=== PATIENT | male | born 1955 | race African-American/Black ===

== ENCOUNTER 2024-02-25 16:32 | Emergency (ER) | payer OTHER ==
[2024-02-25 16:58] LABS: Bilirubin Neg (Negative); Blood, Urine Negative (Negative); Glucose, Urine (Dipstick) Normal (Negative); Ketone, Urine Negative (Negative); Leukocyte Negative (Negative); Nitrite Negative (Negative); Protein, Urine (Dipstick) 500 mg/dl (Neg-Trace); Specific Gravity, Urine 1.025 (1.005-1.030); Urobilinogen Normal mg/dL (Less than 2)
[2024-02-25 17:12] LABS: Clarity Hazy (Clear)
[2024-02-25 17:13] LABS: Bacteria/HPF 2+ HPF (None Seen); CAUTI Indications for Culture Pelvic or flank pain; Mucous/LPF 3+ LPF (<2+); RBC/HPF 0-3 HPF (0-3); Squamous Epithelial 0-3 HPF (0-3); WBC/HPF 0-3 HPF (0-3)
[2024-02-25 17:16] LABS: Urine Culture Reflex No No
[2024-02-25] MEDS ORDERED: Ondansetron PF 4 MG/2 ML Vial ONE (18:43)
[2024-02-25] MEDS ORDERED: Meclizine HCl 25 MG TAB ONE (18:44)
[2024-02-25 19:27] LABS: #Basophils 0.02 10x3/uL (0.0-0.2); #Monocytes 0.54 10x3/uL (0.0-1.1); #Neutrophils 5.34 10x3/uL (1.5-8.4); %Basophils 0.3 % (0.0-2.0); %Eosinophils 1.4 % (0.0-6.0); %Lymphocytes 15.4 % (18.0-47.0); %Monocytes 7.6 % (0.0-10.0); ALT (SGPT) 10 U/L (8-55); AST (SGOT) 12 U/L (5-34); Albumin 3.9 g/dL (3.4-4.8); Alkaline Phosphatase 95 U/L (40-110); Anion Gap 16 mmol/L (10-20); BUN (Urea Nitrogen) 44 mg/dL (8.4-25.7); Bilirubin, Total 0.3 mg/dL (0.2-1.2); Calc. Creatinine Clearance 0 mL/min (70-130); Calcium 9.9 mg/dL (7.8-10.44); Carbon Dioxide 22 mmol/L (23-31); Chloride 106 mmol/L (98-107); Estimated GFR 18; Glucose 98 mg/dL (80-115); Hemoglobin 11.6 g/dL (13.5-17.5); Lipase 94 U/L (8-78); Mean Corpuscular HGB CONC 32.2 g/dL (32.0-36.0); Mean Corpuscular Hemoglobin 29.9 pg (27.0-33.0); Mean Corpuscular Volume 92.8 fL (81.2-95.1); Mean Platelet Volume 9.8 fL (7.4-10.4); Platelet Count 181 10x3/uL (150-450); Potassium 4.1 mmol/L (3.5-5.1); Protein, Total 7.9 g/dL (5.8-8.1); RBC Distribution Width 14.7 % (11.5-14.5); Red Blood Cell (RBC) Count 3.88 10x6/uL (4.32-5.72); Sodium 140 mmol/L (136-145); White Blood Cell (WBC) Count 7.1 10x3/uL (3.5-10.5)
[2024-02-25 19:29] LABS: Troponin I 0.018 ng/mL (< 0.028)
== END 2024-02-25 20:55 | disposition home or self-care (01) ==
LOC: CSHERS 16:32
DX: R42 Dizziness and giddiness (principal); R29.700 NIHSS score 0; R11.0 Nausea; I10 Essential (primary) hypertension; Z79.899 Other long term (current) drug therapy
CPT/HCPCS: 70450; 80053; 81001; 83690; 84484; 85025; 93005; J2405; 96374